=== PATIENT | male | born 1995 | race Caucasian/White ===

== ENCOUNTER 2017-06-07 09:39 | Emergency (ER) | payer OTHER ==
[2017-06-07 09:48] VITALS: RESP 18
[2017-06-07] MEDS ORDERED: NS 1,000 ML IV ONE (10:00)
--- NOTE | 2017-06-07 10:04 | EDPHY ---
H & P Time Seen by Provider: 06/07/17 09:49 HPI/ROS: CHIEF COMPLAINT: I think I had a seizure yesterday HISTORY OF PRESENT ILLNESS: History is from the patient as well as his girlfriend Ashanti who is here with him and was with him yesterday when this happened. He was getting a massage on his neck because he was stiff after they had return from a plane flight from [facility] on Monday this past weekend. This was at 620- 6:30 p.m. yesterday. He felt lightheaded and he laid down in the bed and his eyes rolled up and he started shaking which lasted about 5-7 seconds. She turned him on his side and he woke up was confused for about 15-20 seconds and then was back to normal. Did not bite his tongue, not incontinent. Was not confused after about 15-20 seconds after the event. Ambulatory. REVIEW OF SYSTEMS: Eye: no change in vision ENT: no sore throat Cardiac: No chest pain. Pulmonary: no cough or SOB Abdomen: no vomiting, diarrhea, abdominal pain Musculoskeletal: Still is a little bit of neck stiffness which has been present since the plane flight, unchanged. Skin: no rash Neuro: no headache, no vertigo. Constitutional: no fever : no urinary symptoms A comprehensive 10 point review of systems is otherwise negative aside from elements mentioned in the history of present illness. PAST MEDICAL HISTORY: Negative except for pneumonia. Family history: Negative for seizure, DVT or PE, sudden cardiac . Social history: Marijuana and tobacco but denies alcohol or other drugs. General Appearance: Alert and conversant, cooperative. Eyes: No scleral icterus. Pupils 3 mm reactive, extraocular motion intact, no nystagmus. ENT, Mouth: Normal mucous membranes. Normal tympanic membranes, no tongue laceration or abrasion. Respiratory: Normal respiratory effort, breath sounds equal, lungs are clear to auscultation. Cardiovascular: Regular rate and rhythm. No carotid bruit. Gastrointestinal: Abdomen is soft and non tender. Neurological: Alert and oriented x3. Normally conversant. Face symmetric, normal movement and sensation in all extremities. Ambulatory, not ataxic, Romberg negative, no pronator drift, normal [id number] bilaterally. Skin: Warm and dry, no rashes. Musculoskeletal: No peripheral edema and no joint swelling. No calf tenderness. Normal range of motion of the left knee. No fusion, joint stable, no bony tenderness. A little bit of tenderness posterior to the knee joint but compartments are soft and both thigh and ankle. Normal pulse and motor and sensory in the foot. No midline spinal tenderness. Psychiatric: Not agitated. Emergency Department course/MDM: I think it is not likely the patient has carotid or vertebral dissection, intracranial mass or bleed, or seizure. I think it is much more likely he had syncope with myoclonic jerking as he did not have tongue laceration or incontinence and did not have a true postictal state. Plan for labs to include D-dimer with knee pain after long plane flight as well as EKG and electrolytes. 1045: Results explained, pretest probability for pulmonary embolism or DVT is low. D-dimer is undetectable. Smoking Status: Current every day smoker Constitutional: Initial Vital Signs Temperature (C) 36.5 C 06/07/17 09:45 Heart Rate 51 L 06/07/17 09:45 Respiratory Rate 18 06/07/17 09:45 Blood Pressure 127/83 H 06/07/17 09:45 O2 Sat (%) 98 06/07/17 09:45 O2 Delivery Mode Room Air Allergies/Adverse Reactions: No Known Allergies Allergy (Unverified 06/07/17 09:45) Home Medications: Medication Instructions Recorded NK [No Known Home Meds] 06/07/17 Medical Decision Making - Diagnostics EKG Interpretation: 12-lead EKG interpreted by me; official reading is in trace master. My interpretation is sinus rhythm rate 43, early repolarization. Differential Diagnosis: Differential diagnosis considered for syncope including but not limited to pulmonary embolism, vasovagal syncope, arrhythmia, dehydration, and blood loss. - Data Points Laboratory Results: Laboratory Results 06/07/17 10:05 06/07/17 10:05 06/07/17 06/07/17 06/07/17 10:05 10:05 10:05 WBC 6.62 10^3/uL 10^3/uL (3.80-9.50) RBC 5.08 10^6/uL 10^6/uL (4.40-6.38) Hgb 16.4 g/dL g/dL (13.7-17.5) Hct 47.4 % % (40.0-51.0) MCV 93.3 fL fL (81.5-99.8) MCH 32.3 pg pg (27.9-34.1) MCHC 34.6 g/dL g/dL (32.4-36.7) RDW 12.6 % % (11.5-15.2) Plt Count 203 10^3/uL 10^3/uL (150-400) MPV 10.6 fL fL (8.7-11.7) Neut % (Auto) 52.4 % % (39.3-74.2) Lymph % (Auto) 34.4 % % (15.0-45.0) [place] % (Auto) 7.1 % % (4.5-13.0) Eos % (Auto) 4.8 % % (0.6-7.6) Baso % (Auto) 1.1 % % (0.3-1.7) Nucleat RBC Rel Count 0.0 % % (0.0-0.2) Absolute Neuts (auto) 3.47 10^3/uL 10^3/uL (1.70-6.50) Absolute Lymphs (auto) 2.28 10^3/uL 10^3/uL (1.00-3.00) Absolute Monos (auto) 0.47 10^3/uL 10^3/uL (0.30-0.80) Absolute Eos (auto) 0.32 10^3/uL 10^3/uL (0.03-0.40) Absolute Basos (auto) 0.07 10^3/uL 10^3/uL (0.02-0.10) Absolute Nucleated RBC 0.00 10^3/uL 10^3/uL (0-0.01) Immature Gran % 0.2 % % (0.0-1.1) Immature Gran # 0.01 10^3/uL 10^3/uL (0.00-0.10) D-Dimer < 0.27 ug/mLFEU ug/mLFEU (0.00-0.50) Sodium 144 mEq/L mEq/L (134-144) Potassium 4.2 mEq/L mEq/L (3.5-5.2) Chloride 107 mEq/L mEq/L (97-110) Carbon Dioxide 22 mEq/l mEq/l (22-31) Anion Gap 15 mEq/L mEq/L (8-16) BUN 11 mg/dL mg/dL (7-23) Creatinine 0.7 mg/dL mg/dL (0.7-1.3) Estimated GFR > 60 Glucose 86 mg/dL mg/dL (70-100) Calcium 9.8 mg/dL mg/dL (8.5-10.4) Medications Given: Discontinued Medications Sodium Chloride (Ns) 1,000 mls @ 0 mls/hr IV ONCE ONE; Wide Open PRN Reason: Protocol Stop: 06/07/17 10:01 Last Admin: 06/07/17 10:12 Dose: 1,000 mls Departure - Departure Disposition: Home, Routine, Self-Care Clinical Impression: Syncope Qualifiers: Syncope type: vasovagal syncope Qualified Code(s): R55 - Syncope and collapse Condition: Good Instructions: Syncope (ED) Additional Instructions: I think it is much more likely that you had syncope or passing out or fainting than a seizure. Please follow-up with referral primary care physician in the next 2 weeks. Referrals: Mariza House MD [Medical Doctor] - As per Instructions
--- NOTE | 2017-06-07 10:10 | CPEKG ---
Heart Rate: 43 RR Interval: 1395 P-R Interval: 128 QRSD Interval: 102 QT Interval: 452 QTC Interval: 383 P [place]: 41 QRS [place]: 89 T Wave [place]: 64 EKG Severity - OTHERWISE NORMAL ECG - EKG Impression: SINUS BRADYCARDIA EKG Impression: ST ELEV, PROBABLE NORMAL EARLY REPOL PATTERN EKG Impression: TALL T WAVES, PROBABLY NORMAL VARIANT Electronically Signed By: Jesus Ernst 07-Jun-2017 10:12:17
[2017-06-07 10:15] LABS: % IMMATURE GRANULYOCYTES 0.2 % (0.0-1.1); ABSOLUTE IMMATURE GRANULOCYTES 0.01 10^3/uL (0.00-0.10); ADD DIFF? NO; ADD MORPH? NO; ADD SCAN? NO; ATYPICAL LYMPHOCYTE FLAG 10 (0-99); FRAGMENT RBC FLAG 0 (0-99); HEMATOCRIT 47.4 % (40.0-51.0); HEMOGLOBIN 16.4 g/dL (13.7-17.5); LEFT SHIFT FLG 0 (0-99); LIPEMIA HEMOLYSIS FLAG 90 (0-99); MEAN CELL HEMOGLOBIN 32.3 pg (27.9-34.1); MEAN CELL HEMOGLOBIN CONCENTR. 34.6 g/dL (32.4-36.7); MEAN CELL VOLUME 93.3 fL (81.5-99.8); MEAN PLATELET VOLUME 10.6 fL (8.7-11.7); PLATELET CLUMPS FLAG 0 (0-99); PLATELET COUNT 203 10^3/uL (150-400); RED BLOOD CELL COUNT 5.08 10^6/uL (4.40-6.38); RED CELL DISTRIBUTION WIDTH 12.6 % (11.5-15.2)
[2017-06-07 10:33] LABS: ANION GAP 15 mEq/L (8-16); CALCIUM 9.8 mg/dL (8.5-10.4); CARBON DIOXIDE 22 mEq/l (22-31); CHLORIDE 107 mEq/L (97-110); CREATININE 0.7 mg/dL (0.7-1.3); GLOMERULAR FILTRATION RATE > 60; GLUCOSE 86 mg/dL (70-100); POTASSIUM 4.2 mEq/L (3.5-5.2); SODIUM 144 mEq/L (134-144)
[2017-06-07 10:57] VITALS: BP 136/79; PULSE 58; TEMP 98.4; O2SAT 96
== END 2017-06-07 10:55 | disposition home or self-care (01) ==
DX: R55 Syncope and collapse (principal); F17.200 Nicotine dependence, unspecified, uncomplicated; E86.9 Volume depletion, unspecified

== ENCOUNTER 2017-08-12 13:06 | Emergency (ER) | payer OTHER ==
[2017-08-12 13:21] VITALS: BP 149/68; PULSE 70; RESP 16; TEMP 97.9; O2SAT 98
--- NOTE | 2017-08-12 13:42 | EDPHY ---
H & P Stated Complaint: rt thumb tip - cut on glass while cleaning countertop Source: Patient Exam Limitations: No limitations - Personal History Current Tetanus/Diphtheria Vaccine: Yes Current Tetanus Diphtheria and Acellular Pertussis (TDAP): Yes Tetanus Vaccine Date: 2014 - Medical/Surgical History Hx Asthma: No Hx Chronic Respiratory Disease: No Hx Diabetes: No Hx Cardiac Disease: No Hx Renal Disease: No Hx Cirrhosis: No Hx Alcoholism: No Hx HIV/AIDS: No Hx Splenectomy or Spleen Trauma: No Other PMH: PNA - Social History Smoking Status: Current every day smoker Time Seen by Provider: 08/12/17 13:41 HPI/ROS: HPI: This is a 22-year-old male who presents with Chief Complaint: rt thumb tip - cut on glass while cleaning countertop Location: Tip of right thumb Quality: Cut on glass Duration: Prior to arrival Signs and Symptoms: + mild bleeding, no radiation, no numbness, no weakness, no tingling, no decreased range of motion Timing: Acute Severity: Mild Context: Patient presents with cut tip of his right thumb with a piece of glass while cleaning the counter top of his apartment this morning. He smells of marijuana heavily and admits to recently using. Reports his tetanus is up-to -date. Right-hand dominant. He noted immediate pain, was able to pull piece of glass out, and then some mild bleeding that resolved with direct pressure. Modifying Factors: Direct pressure Comment: ROS: Constitutional: No fever, no chills, no weight loss Eyes: No blurred vision Respiratory: No shortness of breath, no cough Cardiovascular: No chest pain Gastrointestinal: No nausea, no vomiting no diarrhea Genitourinary: No dysuria Extremities: No myalgias Neurologic: No weakness, no numbness Skin: No rashes Hematologic: No bruising, no bleeding MEDICAL/SURGICAL/SOCIAL HISTORY: Medical history: Generally healthy Surgical history: Denies Social history: College student. CONSTITUTIONAL: Well-developed well-nourished young adult male, awake and alert , no obvious distress HEENT: Atraumatic and normocephalic, PERRL, EOMI. Tympanic membranes clear. Oropharynx clear, no exudate and moist pink mucosa. Airway patent. No lymphadenopathy. No meningismus. Cardiovascular: Normal S1/S2, regular rate, regular rhythm, without murmur rub or gallop. PULMONARY/CHEST: Symmetrical and nontender. Clear to auscultation bilaterally. Good air movement. No accessory muscle usage. ABDOMEN: Soft, nondistended, nontender, no rebound, no guarding, no peritoneal signs, no masses or organomegaly. No CVAT. EXTREMITIES: 2/2 pulses, right tip of thumb on the pad shows 0.5 mm superficial laceration; with no active bleeding. DIP/PIP flexion extension intact. No nail injury noted. Light touch sensation intact. no deformities, no clubbing, no cyanosis or edema. NEUROLOGICAL: no focal neuro deficits. GCS 15. SKIN: Warm and dry, no erythema. no rash. Good capillary refill. (Radhika Cao) Constitutional: Initial Vital Signs Temperature (C) 36.6 C 08/12/17 13:18 Heart Rate 70 08/12/17 13:18 Respiratory Rate 16 08/12/17 13:18 Blood Pressure 149/68 H 08/12/17 13:18 O2 Sat (%) 98 08/12/17 13:18 O2 Delivery Mode Room Air Allergies/Adverse Reactions: No Known Allergies Allergy (Verified 08/12/17 13:18) Home Medications: Medication Instructions Recorded NK [No Known Home Meds] 06/07/17 Medical Decision Making Procedures: Procedure: Laceration repair. Verbal consent was obtained from the patient. The right thumb pad superficial 0.5 mm laceration was anesthetized in the usual fashion using 4 mL of 1% lidocaine without epinephrine. The wound was irrigated, draped and explored to its base with a gloved finger. There were no deep structures involved. No tendon injury was identified. No foreign bodies were identified. No sutures or skin glue was needed. Xeroform and Clean sterile dressing applied. Good hemostasis was achieved and patient tolerated procedure well. The procedure was performed by myself. (Radhika Cao) ED Course/Re-evaluation: Wound care provided. Tetanus up-to-date. No signs of neurovascular compromise/tenting of skin/compartment syndrome/ extremities and joints examined above and below area of concern and are neurovascularly intact. Area was cleaned with mild soap and water, copiously irrigated, no foreign bodies found. Xeroform, gauze, Kerlix applied. Sutures not indicated at this time. Written and verbal wound care instructions provided. (Radhika Cao) The patient was evaluated and managed by the physician library services assistant. I have reviewed this chart and I agree with the findings and plan of care as documented , as indicated by my signature. I am the secondary supervising physician. ( Gillian Javier) Differential Diagnosis: Differential diagnosis includes foreign body, contusion, laceration. (Radhika Cao) Departure - Departure Disposition: Home, Routine, Self-Care Clinical Impression: Abrasion of right thumb, initial encounter Condition: Good Instructions: Abrasion (ED) Additional Instructions: Keep the dressing in place for 48 hours. After 48 hours, you may remove the dressing; wash the site daily with mild soap and water; then pat dry. Take ibuprofen 600-800 mg every 6-8 hours with food as needed for pain and inflammation. Apply ice for 30 minutes at a time; 2-3 times per day for the next 1-2 days. Please monitor for signs and symptoms of infection; increased warmth, fever, purulent drainage. If any of these should occur please return to the emergency room immediately. Referrals: [facility],. [Clinic] - As per Instructions
== END 2017-08-12 14:31 | disposition home or self-care (01) ==
DX: S60.311A Abrasion of right thumb, initial encounter (principal); F17.200 Nicotine dependence, unspecified, uncomplicated; W25.XXXA Contact with sharp glass, initial encounter; Y99.8 Other external cause status; Y93.89 Activity, other specified

== ENCOUNTER 2019-03-29 13:14 | Emergency (ER) | payer OTHER ==
--- NOTE | 2019-03-29 14:36 | EDPHY ---
H & P Stated Complaint: LLQ pn and L testicle lump since last night. Denies Hx. Time Seen by Provider: 03/29/19 13:29 HPI/ROS: CHIEF COMPLAINT: Testicular lump HISTORY OF PRESENT ILLNESS: 23-year-old male presents with a lump on the left testicle. He 1st noticed the lump yesterday and then noted discomfort in the left groin area. Discomfort is mild and intermittent, without obvious alleviating or aggravating factors. He recently had surgery for a deviated septum and has been taking oxycodone, which has caused constipation. No other GI symptoms and no abdominal pain. No dysuria or fever. REVIEW OF SYSTEMS: complete 10 point ROS reviewed and is negative except for the noted elements in the HPI Source: Patient - Personal History Current Tetanus/Diphtheria Vaccine: Yes Tetanus Vaccine Date: 2014 - Medical/Surgical History Hx Asthma: No Hx Chronic Respiratory Disease: No Hx Diabetes: No Hx Cardiac Disease: No Hx Renal Disease: No Hx Cirrhosis: No Hx Alcoholism: No Hx HIV/AIDS: No Hx Splenectomy or Spleen Trauma: No Other PMH: Deviated septum repair 03/21/19 - Family History Significant Family History: No pertinent family hx - Social History Smoking Status: Current every day smoker Alcohol Use: Sober Drug Use: None - Physical Exam Exam: General Appearance: Alert, pleasant Eyes: Pupils equal and round, no conjunctival pallor or injection ENT, Mouth: Mucous membranes moist Neck: Normal inspection Respiratory: Normal respiratory rate Cardiovascular: Regular rate and rhythm Gastrointestinal: Abdomen is soft and nontender Genitourinary: Normal inspection, small mobile mass palpable on the upper inner aspect of the left testicle, no tenderness; no inguinal adenopathy Neurological: A&O, nonfocal, normal gait Skin: Warm and dry, no rash Extremities: Normal inspection Psychiatric: Mood and affect normal Constitutional: Initial Vital Signs Temperature (C) 36.8 C 03/29/19 13:25 Heart Rate 98 03/29/19 13:25 Respiratory Rate 18 03/29/19 13:25 Blood Pressure 124/78 H 03/29/19 13:25 O2 Sat (%) 97 03/29/19 13:25 O2 Delivery Mode Room Air Allergies/Adverse Reactions: dog dander Allergy (Verified 03/29/19 13:25) tree and shrub pollen Allergy (Verified 03/29/19 13:25) Home Medications: Medication Instructions Recorded EPINEPHrine [Epipen 0.3 MG] 0.3 mg IM ONCE #2 syr 09/29/18 Medical Decision Making - Diagnostics Imaging Results: Testicular Ultrasound 03/29/19 13:30 Impression: There is a left 0.9 cm epididymal head simple cyst which corresponds to the palpable abnormality. Findings and recommendations discussed with KEESHA ROCHA at 1412 hour, 2018. Imaging: Discussed imaging studies w/ railroad car letterer Radiologist ED Course/Re-evaluation: This pt presents with left testicular pain/lump. Ultrasound reveals an epididymal head cyst; no torsion. UA negative. Results d/w pt, will f/u PCP. Differential Diagnosis: includes though not limited to testicular torsion, UTI, epididymitis, orchitis, STD Departure - Departure Disposition: Home, Routine, Self-Care Clinical Impression: Epididymal cyst Condition: Good Instructions: Additional Information Additional Instructions: You have a cyst on the epididymis. This is a benign condition. Return for worsening pain or any concerns. Referrals: Rizwan Marie MD [Medical Doctor] - As per Instructions
[2019-03-29 15:31] VITALS: BP 125/85
== END 2019-03-29 15:24 | disposition home or self-care (01) ==
DX: N50.3 Cyst of epididymis (principal); Z79.891 Long term (current) use of opiate analgesic